=== PATIENT | male | born 1980 | race Caucasian/White ===

== ENCOUNTER 2016-10-01 00:59 | Emergency (ER) | payer BC ==
[2016-10-01] MEDS ORDERED: CLINDAMYCIN HCL 150 MG CAPSULE PO ONE (01:46)
[2016-10-01] MEDS ORDERED: FLUCONAZOLE 100 MG TABLET PO ONE (01:46)
--- NOTE | 2016-10-01 01:48 | ER Document Report ---
ED General - General Chief Complaint: Skin Problem Stated Complaint: POSSIBLE MRSA Notes: Patient is a 35-year-old male presents with complaint of some redness to the skin in his inguinal area. Patient MRSA in his left arm in July. He's concerned maybe Savella that again now on his inguinal area. He did start taking Bactrim. He also has been placing Bactroban cream over the area. No fevers. No vomiting. No abnormal discharge. No other complaints this time. TRAVEL OUTSIDE OF THE [place] IN LAST 30 DAYS: No - Related Data Allergies/Adverse Reactions: No Known Allergies Allergy (Unverified 05/15/15 13:10) Past Medical History - Social History Smoking Status: Current Every Day Smoker Frequency of alcohol use: Occasional Drug Abuse: None Family History: Reviewed & Not Pertinent Patient has suicidal ideation: No Patient has homicidal ideation: No Pulmonary Medical History: Reports: Hx Asthma Renal/ Medical History: Denies: Hx Peritoneal Dialysis Past Surgical History: Reports: Hx Nose Surgery - Nasal polyp removal Review of Systems - Review of Systems Notes: My Normal Review Basic REVIEW OF SYSTEMS: CONSTITUTIONAL : Denies fever, chills, or sweats. Denies recent illness. GASTROINTESTINAL: Denies abdominal pain. Denies nausea, vomiting, or diarrhea. Denies constipation. Last BM: MUSCULOSKELETAL: Denies neck or back pain or joint pain or swelling. SKIN: Redness to skin ain inguinal area. NEUROLOGICAL: Denies altered mental status or loss of consciousness. ALL OTHER SYSTEMS REVIEWED AND NEGATIVE. Physical Exam - Vital signs Vitals: Temp Pulse Resp BP Pulse Ox 98.3 F 101 H 18 132/83 H 98 10/01/16 01:12 10/01/16 01:12 10/01/16 01:12 10/01/16 01:12 10/01/16 01:12 - Notes Notes: General Appearance: Well nourished, alert, cooperative, no acute distress, no obvious discomfort. Vitals: reviewed, See vital signs table. Abdomen: Normal BS, soft, No rigidity, No abdominal tenderness, No guarding, no rebound, no abdominal masses, no organomegaly Genitalia: No redness or swelling to the genitalia. No pain to palpation of the genitalia. Extremities: strength 5/5 in all extremities, good pulses in all extremities, no swelling or tenderness in the extremities, no edema. Skin: There is some mild redness in the inguinal folds. Most of it appears consistent with use infection. There is an area on the right side that dissolve it deeper red in color and is is small break in the skin there. This could represent an early cellulitis. No abnormal discharge. Neuro: speech clear, oriented x 3, normal affect, responds appropriately to questions. Course - Vital Signs Vital signs: Temp Pulse Resp BP Pulse Ox 97.5 F 86 18 121/83 97 10/01/16 02:14 10/01/16 02:14 10/01/16 02:14 10/01/16 02:14 10/01/16 02:14 - Transfer of Care Notes: 10/01/16 02:19 Patient has what appears be yeast infection angle area. There is one area with a small area of skin breakdown which appears consistent with maybe an early cellulitis as well. I will place him on clindamycin. I did give him a dose of Diflucan here. I still encourage him to return to ER immediately if he has any spreading redness or swelling. Currently has no redness or swelling to genitalia. Informed him if he does develop any redness or swelling to the genitalia he must return to ER immediately. I do not think we need to cover for Pseudomonas as the patient is not diabetic is otherwise pretty healthy. Dictation of this chart was performed using voice recognition software; therefore, there may be some unintended grammatical errors. Discharge - Discharge Clinical Impression: Yeast dermatitis Cellulitis Qualifiers: Site of cellulitis: trunk Site of cellulitis of trunk: groin Qualified Code(s) : L03.314 - Cellulitis of groin Condition: Good Disposition: HOME, SELF-CARE Additional Instructions: CELLULITIS: You have an infection of your skin and underlying soft tissues called cellulitis. This is due to bacteria, which can enter through any break in the skin, or even through an irritated hair follicle. Untreated, cellulitis will usually worsen. Antibiotics are required. Usually, warm packs or warm soaks, and elevation of the infected area are recommended. You should start getting better within 24 to 36 hours. Most infections respond quickly to the right medication. Follow-up care is important, however, to check for abscess (boil) formation, unsuspected foreign body, or resistant infection. If you develop fever, chills, or if the area of infection is becoming rapidly more swollen or painful, call the doctor at once. ANTIBIOTIC THERAPY: You have been given an antibiotic prescription. It's important that you take all the medication, unless instructed otherwise by your physician. Failure to complete the entire course can result in relapse of your condition. Common side effects of antibiotics include nausea, intestinal cramping, or diarrhea. Women may develop vaginal yeast infections, and babies can get yeast (thrush) in the mouth following the use of antibiotics. Contact your physician if you develop significant side effects from this medication. Allergy to this antibiotic can result in hives, wheezing, faintness, or itching. If symptoms of allergy occur, stop the medication and call the doctor. CLINDAMYCIN: You have been given a prescription for the antibiotic clindamycin. It is often prescribed for infections in the mouth, such as dental infections or abscesses, and for skin infections due to MRSA. It's important that you take all the medication, unless instructed otherwise by your physician. Failure to complete the entire course can result in relapse of your condition. Common side effects of antibiotics include nausea, intestinal cramping, or diarrhea. Women may develop vaginal yeast infections, and babies can get yeast (thrush) in the mouth following the use of antibiotics. Contact your physician if you develop significant side effects from this medication. Allergy to this antibiotic can result in hives, wheezing, faintness, or itching. If symptoms of allergy occur, stop the medication and call the doctor. FOLLOW-UP CARE: If you have been referred to a physician for follow-up care, call the physician s office for an appointment as you were instructed or within the next two days. If you experience worsening or a significant change in your symptoms, notify the physician immediately or return to the Emergency Department at any time for re-evaluation. Please return to the ER immediately if you have spreading redness, fevers, or any redness or swelling that affects your genitalia. This is extremely important being that infection involving the genitalia can be life- threatening. Please follow-up with your doctor or the ER in 2 days for reevaluation. Prescriptions: Clindamycin HCl 300 mg PO ASDIR #56 capsule
[2016-10-01 02:15] VITALS: BP 121/83
== END 2016-10-01 02:18 | disposition home or self-care (01) ==
LOC: ER 00:59
DX: L03.314 Cellulitis of groin (principal); B37.2 Candidiasis of skin and nail; F17.200 Nicotine dependence, unspecified, uncomplicated; Z86.14 Personal history of Methicillin resistant Staphylococcus aureus infection
CPT/HCPCS: 99283